=== PATIENT | male | born 2000 | race Hispanic/Latino ===

== ENCOUNTER → 2020-03-09 | Outpatient (CLI) | payer OTHER ==
--- NOTE | 2020-03-09 15:53 | Diagnostic Imaging Report ---
Thyroid ultrasound. History: Bilateral neck swelling Comparison: None available. Discussion: Transverse and longitudinal images of the thyroid were obtained demonstrating normal echogenicity of the thyroid. The right thyroid lobe measures 4.8 x 1.6 x 1.6 cm. The left thyroid lobe measures 5.1 x 1.2 x 1.7 cm. No nodules are present. The isthmus measures 3 mm, within normal limits. IMPRESSION: 1. Thyroid gland is unremarkable. No suspicious nodule. 2. Indeterminate bilateral hypoechoic nonvascular lesions are identified medial to the thyroid gland measuring up to 1.8 cm on the left and 1.5 cm in the right of uncertain etiology. Differential considerations include parathyroid adenomas, atypical lymph nodes or possible diverticuli. Recommend contrast enhanced CT for further evaluation. Signed by: Kendrick Crow MD on 03/09/2020 3:50 PM
== END ==
LOC: US 07:24
PROVIDERS: ATTEND Family Medicine
DX: R22.1 Localized swelling, mass and lump, neck (principal)
CPT/HCPCS: 76536

== ENCOUNTER → 2020-03-30 | Outpatient (CLI) | payer OTHER ==
[~2020-03-30] MED LIST: IOPAMIDOL 370 MG/ML 200 ML INFUS..BTL INJ ONE; SODIUM CHLORIDE 0.9% 50ML 50 ML ONE
--- NOTE | 2020-03-30 15:30 | Diagnostic Imaging Report ---
Examination:CT SOFT TISSUE NECK WITH CONTRAST History: ^[id number] ^[id number] ^ABN US OF NECK Comparison studies: None Technique: Axial images from the skull base to the thoracic inlet Coronal and sagittal reformatted images. Dose modulation, iterative reconstruction, and/or weight based adjustment of the mA/kV was utilized to reduce the radiation dose to as low as reasonably achievable. Intravenous contrast: 100mL of Isovue 370. Findings: Soft tissues: No abnormalities. Aerodigestive tract: No abnormality. Lymph nodes: No radiographically significant adenopathy. Vessels: Arteries and veins are patent. Thyroid gland: Normal in size and homogeneous. Submandibular glands: Normal in size and homogeneous. Parotid glands: Normal in size and homogeneous. Orbits: No abnormalities. Paranasal sinuses: Tiny retention cyst of the anterior wall of the left maxillary sinus. Temporal bones: No abnormalities. Skull base and facial bones: Intact. Cervical spine: No disc bulge or herniation or foraminal or canal stenosis. Visualized lung apices: No abnormalities. IMPRESSION: No abnormality of the thyroid or parathyroid and no concerning adenopathy. Signed by: Dr. Valeria Norwood M.D. on 03/30/2020 3:27 PM
== END ==
LOC: CT 07:47
PROVIDERS: ATTEND Family Medicine
DX: R93.89 Abnormal findings on diagnostic imaging of other specified body structures (principal); R94.6 Abnormal results of thyroid function studies
CPT/HCPCS: 70491; Q9967